=== PATIENT | female | born 1970 | race Caucasian/White ===

== ENCOUNTER 2022-06-17 14:54 | Emergency (ER) | payer BC ==
[~2022-06-17] VITALS: Ht 152.4 cm; Wt 91.2 kg
[2022-06-17 14:57] VITALS: BP 119/65
[2022-06-17] MEDS ORDERED: ACETAMINOPHEN 325 MG TAB PO ONE (15:05)
[2022-06-17] MEDS ORDERED: MECLIZINE 25 MG TAB PO ONE (15:40)
[2022-06-17] MEDS ORDERED: [UNRECOGNIZED DRUG - CODE] PO (16:58)
[2022-06-17] MEDS ORDERED: ONDA-188 PO (16:58)
[2022-06-17] MEDS ORDERED: ACET-10509 PO (16:58)
[2022-06-17 17:07] VITALS: BP 117/85
== END 2022-06-17 17:00 | disposition home or self-care (01) ==
LOC: MED 14:54
DX: S06.0X0A Concussion without loss of consciousness, initial encounter (principal); W11.XXXA Fall on and from ladder, initial encounter; Y93.89 Activity, other specified; Y92.89 Other specified places as the place of occurrence of the external cause; Y99.0 Civilian activity done for income or pay
CPT/HCPCS: 70450; 99284; J8597